=== PATIENT | female | born 1985 | race African-American/Black ===

== ENCOUNTER 2020-04-12 23:28 | Inpatient (IN) ==
[2020-04-12] MEDS ORDERED: ONDANSETRON 4 MG/2 ML VIAL IV PRN (23:40)
[2020-04-12] MEDS ORDERED: LACTATED RINGERS 500 ML IV PRN (23:40)
[2020-04-12] MEDS ORDERED: BUTORPHANOL 2 MG/ML VIAL IV PRN (23:40)
[2020-04-13 00:36] LABS: Bilirubin,Direct < 0.100 MG/DL (0.0-0.20); Uric Acid 6.1 MG/DL (2.6-6.0)
[2020-04-13 00:40] LABS: Alanine Aminotransferase 12 U/L (13-56); Albumin 2.5 G/DL (3.4-5.0); Alkaline Phosphatase 189 U/L (45-117); Aspartate Amino Transferase 15 U/L (0-37); Bilirubin,Total < 0.39 MG/DL (0.2-1.0); Blood Urea Nitrogen 10 MG/DL (7-18); Calcium 8.2 MG/DL (8.5-10.1); Estimated Glom Filtration Rate 116 ML/MIN; Glucose 99 MG/DL (74-106); Osmolality,Calculated 277.4 MOS/KG (273-304); Total Protein 6.8 G/DL (6.4-8.3)
[2020-04-13 00:49] LABS: Basophils % 0.2 % (0.0-0.8); Eosinophils % 0.7 % (0.00-10.9); Hematocrit 37.7 VOL% (35.7-47.0); Hemoglobin 12.6 GM/DL (12.0-16.0); Immature Granulocytes % 0.5 %; Immature Granulocytes Absolute 0.03 #; Lymphocytes # 2.2 10*3/uL (1.4-4.0); Lymphocytes % 38.2 % (21.3-54.2); Mean Corpuscular HGB Conc 33.4 GM/DL (32-36); Mean Corpuscular Volume 88.3 FL (87-102); Mean Platelet Volume 10.5 FL (9.6-12.0); Monocytes % 9.1 % (1.7-12.7); Neutrophils % 51.3 % (38.7-73.9); Platelet Count 246 T/CUMM (130-400); Red Blood Count 4.27 MC/CUMM (3.8-5.5); Red Cell Distribution Width 13.2 % (9.3-17.3); White Blood Count 5.7 T/CUMM (4-12)
[2020-04-13 01:09] LABS: INR 0.9; PT Patient Result 9.7 SECS (9.8-11.9); Partial Thromboplastin Time 30.5 SECS (23.9-33.8)
[2020-04-13] MEDS: LACTATED RINGERS 1,000 ML IV SCH ×2 (03:19→09:41)
[2020-04-13 04:24] LABS: Hypochromasia 1+; Microcytosis Slight; Platelet Estimate Adequate
[2020-04-13] MEDS ORDERED: LABETALOL 200 MG TABLET PO ONE (04:54)
[2020-04-13] MEDS ORDERED: LABETALOL 200 MG TABLET PO SCH ×3 (05:00→15:00)
[2020-04-13] MEDS ORDERED: CITRIC ACID/SODIUM CITRATE 30 ML UDCUP PO ONE (07:39)
[2020-04-13] MEDS ORDERED: ceFAZolin 3,000 MG in SYRINGE 1 EACH IV ONE (07:39)
[2020-04-13] MEDS ORDERED: FAMOTIDINE 20 MG/2 ML VIAL IV ONE (07:39)
[2020-04-13] MEDS ORDERED: OXYTOCIN/LR 20 UNIT/1,000 ML BAG IV ONE ×2 (07:50→09:20)
[2020-04-13] MEDS ORDERED: TRANEXAMIC ACID 1,000 MG/10 ML VIAL ONE (07:50)
[2020-04-13] MEDS ORDERED: miSOPROStoL 200 MCG TABLET ONE (07:50)
[2020-04-13] MEDS ORDERED: CARBOPROST TROMETHAMINE 250 MCG/ML AMP IM ONE (07:50)
[2020-04-13] MEDS ORDERED: METHYLERGONOVINE 0.2 MG/1 ML AMP ONE (07:50)
[2020-04-13] MEDS ORDERED: SODIUM CHLORIDE 0.9% 0 ML IV ONE (07:51)
[2020-04-13] MEDS ORDERED: MAGNESIUM SULF RIDER 100 ML IV ONE (09:04)
[2020-04-13 09:06] LABS: Cord Arterial Blood HCO3 20.3 MMOL/L
[2020-04-13 09:07] LABS: Cord Venous Blood HCO3 24.2 MMOL/L; Cord Venous Blood PO2 21.4 MMHG
[2020-04-13 09:17] LABS: Apearance,Urine CLEAR (Clear); Bacteria,Urine Occasional /HPF (Few); Bilirubin,Urine Negative (Negative); Blood, Urine Small mg/dL (Negative); Glucose,Urine (UA) Negative (Negative); Ketones,Urine Negative (Negative); Nitrite,Urine Negative (Negative); Protein,Urine Negative; RBC,Urine <1 /HPF (0-4); Squamous Epithelial Cell,Urine Occasional /HPF (0-10); Urine Color Straw (Yellow); Urine Specific Gravity 1.006 (1.001-1.035); Urine Urobilinogen < 2.0 EU/DL (0.2-1.0); WBC,Urine 2 /HPF (0-6)
[2020-04-13] MEDS ORDERED: LANOLIN 50% CREAM 0.3 OZ TUBE TOP PRN (09:20)
[2020-04-13] MEDS ORDERED: RHO(D) IMMUNE GLOBULIN 300 MCG SYRINGE IM ONE (09:20)
[2020-04-13] MEDS ORDERED: WITCH HAZEL PADS 100/JAR TOP PRN (09:20)
[2020-04-13] MEDS ORDERED: IBUPROFEN 800 MG TABLET PO PRN (09:20)
[2020-04-13] MEDS ORDERED: ACETAMINOPHEN 325 MG TABLET PO PRN (09:20)
[2020-04-13] MEDS ORDERED: BENZOCAINE 20%/MENTHOL 0.5% SPRAY 56 GM CAN TOP PRN (09:20)
[2020-04-13] MEDS ORDERED: DIPH/TET/ACEL PERT BOOSTER VACCINE 0.5 ML VIAL IM ONE (09:20)
[2020-04-13] MEDS ORDERED: HYDROCORTISONE 2.5% RECTAL CREAM 30 GM TUBE TOP PRN (09:20)
[2020-04-13] MEDS ORDERED: ONDANSETRON 4 MG/2 ML VIAL IV PRN (09:20)
[2020-04-13] MEDS ORDERED: BISACODYL 10 MG SUPP RECTAL PRN (09:20)
[2020-04-13] MEDS ORDERED: MEASLES/MUMPS/RUBELLA VACCINE 0.5 ML VIAL SUBCUT ONE (09:20)
[2020-04-13] MEDS ORDERED: fentaNYL 100 MCG/2 ML VIAL ONE (09:37)
[2020-04-13] MEDS ORDERED: PHENYLEPHRINE 1 MG/10 ML SYRINGE IV ONE (09:37)
[2020-04-13] MEDS ORDERED: BUPIVACAINE SPINAL 0.75% 2 ML AMP SPINAL ONE (09:38)
[2020-04-13] MEDS ORDERED: MORPHINE 10 MG/10 ML VIAL ONE (09:38)
[2020-04-13] MEDS ORDERED: MIDAZOLAM 2 MG/2 ML VIAL ONE (09:38)
[2020-04-13] MEDS ORDERED: MAGNESIUM SULF DRIP 40 GM/1,000 ML ML IV SCH (09:40)
[2020-04-13] MEDS: ACETAMINOPHEN 500 MG TABLET PO SCH ×3 (10:19→21:44)
[2020-04-13] MEDS: LABETALOL 200 MG TABLET PO SCH ×2 (13:08→21:44)
[2020-04-13] MEDS ORDERED: ceFAZolin 3,000 MG in SYRINGE 1 EACH IV SCH (16:30)
[2020-04-13] MEDS: ceFAZolin 1,000 MG in SYRINGE 1 EACH IV SCH (16:37)
[2020-04-13] MEDS: KETOROLAC 30 MG/1 ML VIAL IV SCH (16:43)
[2020-04-13] MEDS: DOCUSATE SODIUM 100 MG CAPSULE PO SCH (21:43)
[2020-04-13] MEDS: oxyCODONE/ACETAMINOPHEN 5-325 MG TABLET PO PRN (22:54)
[2020-04-14] MEDS: KETOROLAC 30 MG/1 ML VIAL IV SCH ×2 (01:24→09:08)
[2020-04-14] MEDS: ceFAZolin 1,000 MG in SYRINGE 1 EACH IV SCH (01:25)
[2020-04-14 05:09] LABS: Basophils % 0.1 % (0.0-0.8); Eosinophils # 0.1 10*3/uL (0.0-0.87); Eosinophils % 0.7 % (0.00-10.9); Hematocrit 37.2 VOL% (35.7-47.0); Hemoglobin 12.3 GM/DL (12.0-16.0); Immature Granulocytes % 0.1 %; Immature Granulocytes Absolute 0.01 #; Lymphocytes # 1.8 10*3/uL (1.4-4.0); Lymphocytes % 24.9 % (21.3-54.2); Mean Corpuscular HGB Conc 33.1 GM/DL (32-36); Mean Corpuscular Volume 87.3 FL (87-102); Mean Platelet Volume 10.4 FL (9.6-12.0); Monocytes % 6.9 % (1.7-12.7); Neutrophils % 67.3 % (38.7-73.9); Platelet Count 202 T/CUMM (130-400); Red Blood Count 4.26 MC/CUMM (3.8-5.5); Red Cell Distribution Width 13.3 % (9.3-17.3); White Blood Count 7.3 T/CUMM (4-12)
[2020-04-14 05:39] LABS: Hypochromasia 1+; Lymphocytes 24 % (20-55); Platelet Estimate Adequate; Segmented Neutrophils 71 % (50-85); Total Cells Counted 100
[2020-04-14 05:40] LABS: Microcytosis Slight
[2020-04-14] MEDS: oxyCODONE/ACETAMINOPHEN 5-325 MG TABLET PO PRN ×2 (06:07→20:45)
[2020-04-14] MEDS: ACETAMINOPHEN 500 MG TABLET PO SCH ×2 (06:15→10:39)
[2020-04-14] MEDS: LABETALOL 200 MG TABLET PO SCH ×3 (06:15→15:52)
[2020-04-14] MEDS ORDERED: SIMETHICONE CHEW 80 MG TABLET PO PRN (08:58)
[2020-04-14] MEDS ORDERED: MAGNESIUM HYDROXIDE SUSP 30 ML UDCUP PO PRN (08:58)
[2020-04-14] MEDS: DOCUSATE SODIUM 100 MG CAPSULE PO SCH ×2 (09:08→20:45)
[2020-04-14] MEDS: MULTIVITAMIN (PRENATAL) TABLET PO SCH (09:08)
[2020-04-15] MEDS: oxyCODONE/ACETAMINOPHEN 5-325 MG TABLET PO PRN ×3 (06:09→20:59)
[2020-04-15] MEDS ORDERED: LABETALOL 100 MG TABLET ONE ×2 (09:15→15:06)
[2020-04-15] MEDS: MULTIVITAMIN (PRENATAL) TABLET PO SCH (09:23)
[2020-04-15] MEDS: DOCUSATE SODIUM 100 MG CAPSULE PO SCH (09:24)
[2020-04-15] MEDS: LABETALOL 200 MG TABLET PO SCH ×4 (09:24→23:29)
[2020-04-15] MEDS: FELODIPINE 5 MG TABLET PO SCH (13:50)
[2020-04-16] MEDS: LABETALOL 200 MG TABLET PO SCH (08:00)
[2020-04-16] MEDS: MULTIVITAMIN (PRENATAL) TABLET PO SCH (08:49)
[2020-04-16] MEDS: FELODIPINE 5 MG TABLET PO SCH ×2 (08:49→10:58)
[2020-04-16] MEDS ORDERED: FELODIPINE 5 MG TABLET PO SCH (09:00)
[2020-04-16 10:17] VITALS: BP 119/82
== END 2020-04-16 12:35 | disposition home or self-care (01) | DRG 540 ==
LOC: N.LD 23:28 → N.OB 04-14 08:42
PROVIDERS: ADMIT Specialist; ATTEND Specialist
PROC: LDCSECT (ICD-10-PCS; 2020-04-13 08:00)